=== PATIENT | female | born 1970 | race Hispanic/Latino ===

== ENCOUNTER → 2023-06-24 06:58 | Outpatient (REF) | payer OTHER, SELFPAY ==
[2023-06-24 08:01] LABS: ALT (SGPT) 84 U/L (0-35); AST (SGOT) 47 U/L (14-36); Albumin 4.3 g/dl (3.5-5.0); Alkaline Phosphatase 120 U/L (38-126); Blood Urea Nitrogen 17 mg/dl (7-17); Calcium 9.1 mg/dl (8.4-10.2); Carbon Dioxide 27 mmol/L (22-30); Chloride 105 mmol/L (98-107); GGTP 29 U/L (12-43); Glucose 119 mg/dl (70-99); Potassium 4.1 mmol/L (3.5-5.1); Sodium 138 mmol/L (135-145); Total Bilirubin 0.9 mg/dl (0.2-1.3); Total Protein 7.3 g/dl (6.3-8.2); eGFR > 60.00
[2023-06-24 09:40] LABS: Glycohemoglobin (HgbA1c) 6.2 % (4.0-5.6)
== END ==
LOC: REG 06:58
PROVIDERS: ATTENDING PHYSICIAN Nurse Practitioner Adult Health
DX: R73.03 Prediabetes (principal); K76.0 Fatty (change of) liver, not elsewhere classified; E55.9 Vitamin D deficiency, unspecified
CPT/HCPCS: 36415; 80053; 82306; 82977; 83036

== ENCOUNTER → 2023-09-21 07:20 | Outpatient (REF) | payer OTHER, SELFPAY ==
[2023-09-21 09:35] LABS: ALT (SGPT) 135 U/L (0-35); AST (SGOT) 78 U/L (14-36); Albumin 4.5 g/dl (3.5-5.0); Alkaline Phosphatase 152 U/L (38-126); Blood Urea Nitrogen 18 mg/dl (7-17); Calcium 9.1 mg/dl (8.4-10.2); Carbon Dioxide 30 mmol/L (22-30); Chloride 105 mmol/L (98-107); Glucose 123 mg/dl (70-99); Potassium 4.7 mmol/L (3.5-5.1); Sodium 140 mmol/L (135-145); Total Bilirubin 0.8 mg/dl (0.2-1.3); Total Protein 7.3 g/dl (6.3-8.2); eGFR > 60.00
[2023-09-21 09:56] LABS: Glycohemoglobin (HgbA1c) 6.1 % (4.0-5.6)
== END ==
LOC: CLINIC 07:20
PROVIDERS: ATTENDING PHYSICIAN Nurse Practitioner Adult Health
DX: R73.03 Prediabetes (principal)
CPT/HCPCS: 36415; 80053; 83036

== ENCOUNTER → 2023-12-09 07:24 | Outpatient (REF) | payer OTHER, SELFPAY ==
[2023-12-09 08:41] LABS: ALT (SGPT) 156 U/L (0-35); AST (SGOT) 87 U/L (14-36); Albumin 4.6 g/dl (3.5-5.0); Alkaline Phosphatase 131 U/L (38-126); Direct Bilirubin 0.2 mg/dl (0.0-0.4); Total Bilirubin 1.1 mg/dl (0.2-1.3); Total Protein 7.5 g/dl (6.3-8.2)
== END ==
LOC: REG 07:24
PROVIDERS: ATTENDING PHYSICIAN Nurse Practitioner Adult Health
DX: R74.8 Abnormal levels of other serum enzymes (principal)
CPT/HCPCS: 36415; 80076

== ENCOUNTER → 2024-04-26 12:09 | Outpatient (REF) | payer OTHER, SELFPAY ==
[2024-04-26 16:57] LABS: ALT (SGPT) 105 U/L (0-35); AST (SGOT) 56 U/L (14-36); Alkaline Phosphatase 133 U/L (38-126); Blood Urea Nitrogen 16 mg/dl (7-17); Calcium 9.5 mg/dl (8.4-10.2); Carbon Dioxide 29 mmol/L (22-30); Chloride 100 mmol/L (98-107); Glucose 106 mg/dl (70-99); HDL Cholesterol 68 mg/dl; LDL Cholesterol, Calculated 118 mg/dl; Potassium 4.3 mmol/L (3.5-5.1); Sodium 139 mmol/L (135-145); Total Bilirubin 1.4 mg/dl (0.2-1.3); Total Cholesterol 208 mg/dl (50-199); Triglyceride 114 mg/dl (10-149); Very Low Density Lipoprotein 22 mg/dl (0-30); eGFR > 60.00
[2024-04-26 17:38] LABS: GGTP 36 U/L (12-43)
== END ==
LOC: CLINIC 12:09
PROVIDERS: ATTENDING PHYSICIAN Nurse Practitioner Adult Health
DX: R73.03 Prediabetes (principal); K76.0 Fatty (change of) liver, not elsewhere classified
CPT/HCPCS: 36415; 80053; 80061; 82977; 83036

== ENCOUNTER → 2024-07-18 11:54 | Outpatient (REF) | payer OTHER, SELFPAY ==
[2024-07-18 13:37] LABS: ALT (SGPT) 157 U/L (0-35); AST (SGOT) 82 U/L (14-36); Albumin 4.3 g/dl (3.5-5.0); Alkaline Phosphatase 109 U/L (38-126); Direct Bilirubin 0.1 mg/dl (0.0-0.4); Total Bilirubin 1.6 mg/dl (0.2-1.3); Total Protein 7.4 g/dl (6.3-8.2)
== END ==
LOC: CLINIC 11:54
PROVIDERS: ATTENDING PHYSICIAN Nurse Practitioner Adult Health
DX: K76.0 Fatty (change of) liver, not elsewhere classified (principal); R74.8 Abnormal levels of other serum enzymes
CPT/HCPCS: 36415; 80076

== ENCOUNTER → 2024-10-19 07:35 | Outpatient (REF) | payer OTHER, SELFPAY ==
[2024-10-19 09:55] LABS: ALT (SGPT) 73 U/L (0-35); AST (SGOT) 41 U/L (14-36); Albumin 4.7 g/dl (3.5-5.0); Alkaline Phosphatase 107 U/L (38-126); Blood Urea Nitrogen 18 mg/dl (7-17); Calcium 9.4 mg/dl (8.4-10.2); Carbon Dioxide 28 mmol/L (22-30); Chloride 105 mmol/L (98-107); Glucose 118 mg/dl (70-99); Potassium 4.3 mmol/L (3.5-5.1); Sodium 140 mmol/L (135-145); Total Protein 8.0 g/dl (6.3-8.2); eGFR > 60.00
[2024-10-19 10:23] LABS: Vitamin D, 25-OH*** 33.6 ng/mL (30-80)
[2024-10-19 11:10] LABS: Glycohemoglobin (HgbA1c) 6.0 % (4.0-5.6)
[2024-10-20 19:33] LABS: Hepatitis B Surface Antigen Negative (Negative)
[2024-10-20 19:50] LABS: Hepatitis C Antibody Negative (Negative)
== END ==
LOC: CLINIC 07:35
PROVIDERS: ATTENDING PHYSICIAN Nurse Practitioner Adult Health
DX: R73.03 Prediabetes (principal); R74.8 Abnormal levels of other serum enzymes; E55.9 Vitamin D deficiency, unspecified
CPT/HCPCS: 36415; 80053; 82306; 83036; 86704; 86706; 86803; 87340

== ENCOUNTER → 2025-01-30 11:48 | Outpatient (REF) | payer OTHER, SELFPAY ==
[2025-01-30 13:09] LABS: ALT (SGPT) 66 U/L (0-35); AST (SGOT) 39 U/L (14-36); Albumin 4.6 g/dl (3.5-5.0); Alkaline Phosphatase 117 U/L (38-126); Blood Urea Nitrogen 12 mg/dl (7-17); Calcium 9.2 mg/dl (8.4-10.2); Carbon Dioxide 31 mmol/L (22-30); Chloride 103 mmol/L (98-107); Glucose 100 mg/dl (70-99); Potassium 4.1 mmol/L (3.5-5.1); Sodium 137 mmol/L (135-145); Total Protein 7.9 g/dl (6.3-8.2); eGFR > 60.00
== END ==
LOC: REG 11:48
PROVIDERS: ATTENDING PHYSICIAN Nurse Practitioner Adult Health
DX: R74.8 Abnormal levels of other serum enzymes (principal)
CPT/HCPCS: 36415; 80053